=== PATIENT | female | born 1975 | race African-American/Black ===

== ENCOUNTER 2018-04-11 20:48 | Observation (INO) ==
[2018-04-11] MEDS ORDERED: NITROGLYCERIN 2% OINT 1 INCH/GM PACK TOP STA (21:25)
[2018-04-11] MEDS ORDERED: ALUM/MAG/SIMETH/LIDO VISC 1:1 30 ML BOTTLE PO STA (21:25)
[2018-04-11] MEDS ORDERED: ASPIRIN 325 MG TABLET PO STA (21:25)
[2018-04-11] MEDS ORDERED: ONDANSETRON 4 MG/2 ML VIAL IV STA (21:25)
[2018-04-11] MEDS ORDERED: MORPHINE 4 MG/1 ML VIAL IV STA (21:25)
[2018-04-11 21:50] LABS: Basophils % 0.2 % (0.0-0.8); Eosinophils # 0.1 10*3/uL (0.0-0.87); Eosinophils % 1.1 % (0.00-10.9); Hematocrit 39.1 VOL% (35.7-47.0); Hemoglobin 12.9 GM/DL (12.0-16.0); Immature Granulocytes % 0.3 %; Immature Granulocytes Absolute 0.03 #; Lymphocytes # 3.5 10*3/uL (1.4-4.0); Lymphocytes % 34.4 % (21.3-54.2); Mean Corpuscular Hemoglobin 29 PG (27-34); Mean Corpuscular Volume 88.7 FL (87-102); Mean Platelet Volume 11.4 FL (9.6-12.0); Monocytes # 0.8 10*3/uL (0.11-0.8); Monocytes % 7.7 % (1.7-12.7); Neutrophils # 5.8 10*3/uL (1.4-7.4); Neutrophils % 56.3 % (38.7-73.9); Platelet Count 242 T/CUMM (130-400); Red Blood Count 4.41 MC/CUMM (3.8-5.5); Red Cell Distribution Width 13.7 % (9.3-17.3); White Blood Count 10.3 T/CUMM (4-12)
[2018-04-11 21:59] LABS: PT Patient Result 10.5 SECS
[2018-04-11 22:07] LABS: Albumin 3.1 G/DL (3.4-5.0); Bilirubin,Total 0.4 MG/DL (0.2-1.0); Calcium 8.6 MG/DL (8.5-10.1); Osmolality,Calculated 283.3 MOS/KG (273-304); Total Protein 7.7 G/DL (6.4-8.3)
[2018-04-11 22:25] LABS: Apearance,Urine CLEAR (Clear); Bacteria,Urine Occasional /HPF (Few); Bilirubin,Urine Negative (Negative); Blood, Urine Negative (Negative); Glucose,Urine (UA) Negative (Negative); Ketones,Urine Negative (Negative); Mucus,Urine Occasional /LPF (Occasional); Nitrite,Urine Negative (Negative); Protein,Urine 30 MG/DL; RBC,Urine <1 /HPF (0-4); Squamous Epithelial Cell,Urine Occasional /HPF (0-10); Urine Color Yellow (Yellow); Urine Specific Gravity 1.021 (1.001-1.035); WBC,Urine 1 /HPF (0-6)
[2018-04-11 22:40] LABS: Barbiturates Screen,Urine Negative (Negative); Benzodiazepines Screen,Urine Negative (Negative); Cannabinoid Screen,Urine Negative (Negative); Opiate Screen,Urine Negative (Negative); Phencyclidine Screen,Urine Negative (Negative)
[2018-04-11] MEDS ORDERED: POTASSIUM CHLORIDE 20 MEQ TABLET PO STA (22:48)
[2018-04-11] MEDS ORDERED: ONDANSETRON 4 MG/2 ML VIAL IV PRN (23:51)
[2018-04-12] MEDS: NITROGLYCERIN 2% OINT 1 INCH/GM PACK TOP SCH ×5 (02:34→23:10)
[2018-04-12 05:02] LABS: Risk Ratio 3.83; VLDL CHOLESTEROL 20.8 MG/DL
[2018-04-12] MEDS: ASPIRIN EC 325 MG TABLET PO SCH (09:10)
[2018-04-12] MEDS: ENOXAPARIN 40 MG/0.4 ML SYRINGE SUBCUT SCH (09:10)
[2018-04-12 10:35] LABS: Albumin 3.2 G/DL (3.4-5.0); Bilirubin,Total 0.5 MG/DL (0.2-1.0); Calcium 8.5 MG/DL (8.5-10.1); Osmolality,Calculated 281.4 MOS/KG (273-304); Potassium 3.5 MMOL/L (3.5-5.1); Total Protein 7.3 G/DL (6.4-8.3)
[2018-04-12] MEDS: IBUPROFEN 800 MG TABLET PO PRN (12:49)
[2018-04-12] MEDS: hydroCHLOROthiazide 25 MG TABLET PO SCH (17:27)
[2018-04-13] MEDS: NITROGLYCERIN 2% OINT 1 INCH/GM PACK TOP SCH ×3 (05:14→17:45)
[2018-04-13] MEDS: ASPIRIN EC 325 MG TABLET PO SCH (12:26)
[2018-04-13] MEDS: ENOXAPARIN 40 MG/0.4 ML SYRINGE SUBCUT SCH (12:26)
[2018-04-13 12:47] LABS: Hepatitis A Ab IgM Quant 0.21 Index; Hepatitis A Ab IgM Result Negative (Negative); Hepatitis B Core IgM Quant 0.17 Index; Hepatitis B Core IgM Result Negative (Negative); Hepatitis B Surface Ag Quant 0.34 Index; Hepatitis B Surface Ag Result Negative (Negative); Hepatitis C Virus Ab Quant 0.15 Index; Hepatitis C Virus Ab Result Negative (Negative)
[2018-04-13] MEDS: hydroCHLOROthiazide 25 MG TABLET PO SCH (17:43)
[2018-04-13] MEDS: IBUPROFEN 800 MG TABLET PO PRN (22:32)
[2018-04-14] MEDS ORDERED: REGADENOSON 0.4 MG/5 ML SYRINGE IV ONE (06:28)
[2018-04-14 08:11] LABS: Alanine Aminotransferase 346 U/L (13-56); Albumin 3.1 G/DL (3.4-5.0); Alkaline Phosphatase 139 U/L (45-117); Aspartate Amino Transferase 117 U/L (0-37); Bilirubin,Direct < 0.100 MG/DL (0.0-0.20); Bilirubin,Indirect 0.3 MG/DL (0.0-1.0); Bilirubin,Total < 0.39 MG/DL (0.2-1.0); Total Protein 7.5 G/DL (6.4-8.3)
[2018-04-14] MEDS: ASPIRIN EC 325 MG TABLET PO SCH (09:12)
[2018-04-14] MEDS: IBUPROFEN 800 MG TABLET PO PRN (09:12)
[2018-04-14 11:54] VITALS: BP 145/74
== END 2018-04-14 13:00 | disposition home or self-care (01) ==
LOC: N.ED 20:48 → N.EDINP 20:48 → N.TELES 04-12 02:02
PROVIDERS: ADMIT Internal Medicine; ATTEND Internal Medicine

== ENCOUNTER 2022-01-14 16:19 | Observation (INO) ==
[2022-01-14] MEDS ORDERED: ASPIRIN 325 MG TABLET ONE (16:41)
[2022-01-14] MEDS ORDERED: NITROGLYCERIN SL 0.4 MG TABLET SL ONE (16:41)
[2022-01-14] MEDS ORDERED: NITROGLYCERIN SL 0.4 MG TABLET SL PRN (16:43)
[2022-01-14] MEDS ORDERED: ASPIRIN 325 MG TABLET PO STA (16:43)
[2022-01-14] MEDS ORDERED: ENOXAPARIN 100 MG/ML SYRINGE SUBCUT STA (16:43)
[2022-01-14 17:13] LABS: Basophils % 0.2 % (0.0-0.8); Eosinophils # 0.2 10*3/uL (0.0-0.87); Eosinophils % 1.5 % (0.00-10.9); Hematocrit 39.5 VOL% (35.7-47.0); Immature Granulocytes % 0.3 %; Immature Granulocytes Absolute 0.03 #; Lymphocytes # 3.7 10*3/uL (1.4-4.0); Lymphocytes % 35.8 % (21.3-54.2); Mean Corpuscular HGB Conc 32.9 GM/DL (32-36); Mean Corpuscular Volume 87.6 FL (87-102); Mean Platelet Volume 11.9 FL (9.6-12.0); Monocytes # 0.6 10*3/uL (0.11-0.8); Monocytes % 6.2 % (1.7-12.7); Platelet Count 259 T/CUMM (130-400); Red Blood Count 4.51 MC/CUMM (3.8-5.5); Red Cell Distribution Width 13.5 % (9.3-17.3); White Blood Count 10.3 T/CUMM (4-12)
[2022-01-14 17:32] LABS: Alanine Aminotransferase 206 U/L (13-56); Albumin 3.3 G/DL (3.4-5.0); Alkaline Phosphatase 157 U/L (45-117); Aspartate Amino Transferase 117 U/L (0-37); Bilirubin,Total < 0.39 MG/DL (0.20-1.00); Blood Urea Nitrogen 11 MG/DL (7-18); Calcium 8.8 MG/DL (8.5-10.1); Carbon Dioxide 30 MMOL/L (21-32); Chloride 105 MMOL/L (98-107); Estimated Glom Filtration Rate 87 ML/MIN; Glucose 186 MG/DL (74-106); Osmolality,Calculated 280.5 MOS/KG (273-304); Potassium 3.5 MMOL/L (3.5-5.1); Sodium 139 MMOL/L (136-145); Total Protein 7.9 G/DL (6.4-8.2)
[2022-01-14] MEDS ORDERED: METOPROLOL TARTRATE 25 MG TABLET PO STA (17:32)
[2022-01-14 17:59] LABS: Eosinophils 2 % (0-10); Lymphocytes 40 % (20-55); Microcytosis Slight; Total Cells Counted 100
[2022-01-14 18:00] LABS: Platelet Estimate Normal
[2022-01-14] MEDS ORDERED: GLUCAGON 1 MG VIAL IM PRN (18:29)
[2022-01-14] MEDS ORDERED: DEXTROSE 10% 250 ML BAG IV PRN (18:35)
[2022-01-14 20:13] LABS: Osmolality,Calculated 278.7 MOS/KG (273-304); Potassium 3.4 MMOL/L (3.5-5.1)
[2022-01-14] MEDS: INSULIN LISPRO 100 UNIT/ML SUBCUT SCH (22:20)
[2022-01-15 05:53] LABS: Basophils % 0.1 % (0.0-0.8); Eosinophils # 0.1 10*3/uL (0.0-0.87); Eosinophils % 1.2 % (0.00-10.9); Hematocrit 39.8 VOL% (35.7-47.0); Hemoglobin 12.8 GM/DL (12.0-16.0); Immature Granulocytes % 0.2 %; Immature Granulocytes Absolute 0.02 #; Lymphocytes # 3.7 10*3/uL (1.4-4.0); Lymphocytes % 39.1 % (21.3-54.2); Mean Corpuscular HGB Conc 32.2 GM/DL (32-36); Mean Corpuscular Volume 88.4 FL (87-102); Monocytes # 0.7 10*3/uL (0.11-0.8); Monocytes % 7.3 % (1.7-12.7); Neutrophils % 52.1 % (38.7-73.9); Platelet Count 221 T/CUMM (130-400); Red Cell Distribution Width 13.5 % (9.3-17.3); White Blood Count 9.4 T/CUMM (4-12)
[2022-01-15 06:20] LABS: Risk Ratio 4.9; VLDL Cholesterol 39.2 MG/DL
[2022-01-15 06:22] LABS: Calcium 8.7 MG/DL (8.5-10.1); Osmolality,Calculated 282.4 MOS/KG (273-304); Potassium 3.5 MMOL/L (3.5-5.1)
[2022-01-15] MEDS ORDERED: ASPIRIN EC 81 MG TABLET PO SCH (09:00)
[2022-01-15] MEDS ORDERED: amLODIPine 10 MG TABLET PO SCH (09:00)
[2022-01-15] MEDS ORDERED: amLODIPine 5 MG TABLET PO SCH (09:00)
[2022-01-15] MEDS ORDERED: carvediloL 6.25 MG TABLET PO SCH (09:00)
[2022-01-15] MEDS: INSULIN LISPRO 100 UNIT/ML SUBCUT SCH ×2 (09:53→12:19)
[2022-01-15 12:30] VITALS: BP 135/84
== END 2022-01-15 13:43 | disposition home or self-care (01) ==
LOC: N.EDINP 16:19 → N.ED 16:19 → SUATTDRO 18:29 → N.TELES 20:20
PROVIDERS: ADMIT Internal Medicine; ATTEND Internal Medicine